=== PATIENT | male | born 1965 | race Caucasian/White ===

== ENCOUNTER 2017-05-02 14:31 | Emergency (ER) | payer OTHER ==
[~2017-05-02] VITALS: Ht 172.7 cm; Wt 78.3 kg
[~2017-05-02 14:31] MED LIST: CEFD300C37 PO; DIAZ5TAB PO; DOCU-180 PO; DOXY50CA42 PO; DULO60CA7 PO; GABA300T3 PO; HYDR-3245 PO; METH750T87 PO; OXYC-302 PO; OXYC-307 PO; ZOLP12.52 PO
[2017-05-02] MEDS ORDERED: SODIUM CHLORIDE FLUSH 10ML SYR IVF ONE (15:30)
[2017-05-02] MEDS ORDERED: ONDANSETRON 2MG/ML, 2ML IVPush ONE (15:30)
[2017-05-02] MEDS ORDERED: FAMOTIDINE 20 MG/2 ML IVP ONE (15:30)
[2017-05-02 15:39] LABS: BASOPHILS # (AUTO) 0.04 x10^3/uL (0-0.1); BASOPHILS % (AUTO) 1 % (0-1); EOSINOPHILS # (AUTO) 0.19 x10^3/uL (0-0.4); EOSINOPHILS % (AUTO) 2 % (1-7); LYMPHOCYTES # (AUTO) 1.77 x10^3/uL (1-3.4); LYMPHOCYTES % (AUTO) 22 % (22-44); MD NO; MEAN CORPUSCULAR HGB CONC 33.8 g/dL (33.2-36.2); MEAN CORPUSCULAR VOLUME 91.5 fL (81-97); MEAN PLATELET VOLUME 8.2 fL (7.4-10.4); MONOCYTES # (AUTO) 0.78 x10^3/uL (0.2-0.8); MONOCYTES % (AUTO) 10 % (2-9); NEUTROPHILS # (AUTO) 5.36 x10^3/uL (1.8-6.8); NEUTROPHILS % (AUTO) 66 % (42-75); PLATELET COUNT 274 x10^3/uL (130-400); RED BLOOD COUNT 4.42 x10^6/uL (4.38-5.82); RED CELL DISTRIBUTION WIDTH 13.7 % (9.4-14.8)
[2017-05-02 15:52] LABS: ALBUMIN 4.1 g/dL (3.4-5.0); ANION GAP 5 mmol/L (5-15); CALCIUM 8.9 mg/dL (8.5-10.1); CHLORIDE 108 mmol/L (98-107)
[2017-05-02 15:55] LABS: ALANINE AMINOTRANSFERASE 16 U/L (12-78); ALKALINE PHOSPHATASE 92 U/L (45-117); BILIRUBIN,TOTAL 0.6 mg/dL (0.2-1.0); TOTAL PROTEIN 7.4 g/dL (6.4-8.2)
[2017-05-02 18:00] VITALS: BP 158/93
[2017-05-02 19:28] LABS: TROPONIN I < 0.015 ng/mL (0.000-0.045)
== END 2017-05-02 19:50 | disposition home or self-care (01) ==
LOC: ED 19:20
DX: R10.13 Epigastric pain (principal); R19.7 Diarrhea, unspecified; G56.00 Carpal tunnel syndrome, unspecified upper limb; R11.0 Nausea; Z87.891 Personal history of nicotine dependence
CPT/HCPCS: 36415; 74022; 80053; 83690; 84484; 85025; 93005; 99285

== ENCOUNTER 2020-04-26 06:03 | Emergency (ER) | payer MEDICARE ==
[~2020-04-26] VITALS: Ht 172.7 cm; Wt 71.9 kg
[~2020-04-26 06:03] MED LIST changes: -HYDR-3245 PO; +HYDR1TAB53 PO; -OXYC-302 PO; -OXYC-307 PO; +OXYC-380 PO; +OXYC1TAB14 PO; +TRAZ-175 PO; +TRAZ50TA66 PO
[2020-04-26 06:06] VITALS: BP 137/90
== END 2020-04-26 06:59 | disposition home or self-care (01) ==
LOC: ED 06:23
DX: B02.9 Zoster without complications (principal); Z90.49 Acquired absence of other specified parts of digestive tract; Z87.891 Personal history of nicotine dependence
CPT/HCPCS: 99283